=== PATIENT | male | born 1970 | race African-American/Black ===

== ENCOUNTER 2018-11-25 15:17 | Emergency (ER) | payer OTHER ==
[~2018-11-25] VITALS: Ht 162.6 cm; Wt 99.8 kg
--- NOTE | 2018-11-25 16:06 | NUR ---
PT BIB SELF C/O DEPRESSION, +SI "I WANT TO CUT MY SELF AND BLEED TO " PT IS AAOX4, NOT IN RESPIRATORY DISTRESS, HOOKED TO MONITOR, KEPT RESTED AND COMFORTABLE, WILL CONTINUE TO MONITOR.
--- NOTE | 2018-11-25 16:13 | NUR ---
SEEN AND EXAMINED BY .
--- NOTE | 2018-11-25 16:15 | NUR ---
URINE SPECIMEN COLLECTED AND SENT TO LAB.
--- NOTE | 2018-11-25 16:20 | NUR ---
Social service consult requested by Dr. Mack for suicidal ideations. Pt. is a 48 year old male who came to [facility] feeling depression and having suicidal ideations with a plan to cut his wrist. NIK met with pt. bedside. Pt. is alert and oriented x 4. Pt. appears teary eyed and depressed. Pt. states he lives on and off with his sister, however they do not get along and he is currently homeless. Pt. has a sad affect. Pt. states he feels hopeless. Pt. is seeking voluntary psychiatric hospitalization. Pt. has a psychiatric diagnosis of Depression. Pt. was recently hospitalized at [facility] 10 days ago. Pt. use to drink alcohol but not anymore. Pt. denies drug use. Pt. smokes cigarettes occasionally. NIK contacted [facility] intake dept and spoke to Alicia and requested bed availability for the pt. She informed SW they are currently doing discharges and will know in 2 hours. NIK gave her pt's information. Clinical referral packet needs to be faxed to . NIK updated ED BHAVESH Rodgers with aforementioned information.
[2018-11-25 16:40] LABS: BASOPHILS # (AUTO) 0.1 /CMM (0.0-0.2); BASOPHILS % (AUTO) 0.9 % (0.0-2.0); EOSINOPHILS % (AUTO) 3.4 % (0.0-6.0); HEMATOCRIT 39 % (39-51); HEMOGLOBIN 13.4 g/dL (13.5-17.5); LYMPHOCYTES # (AUTO) 1.4 /CMM (0.8-4.8); LYMPHOCYTES % (AUTO) 14.8 % (20.0-44.0); MEAN CORPUSCULAR HGB CONC 34 g/dl (31.0-36.0); MEAN CORPUSCULAR VOLUME 86 fL (80-96); MONOCYTES # (AUTO) 0.5 /CMM (0.1-1.30); MONOCYTES % (AUTO) 5.1 % (2.0-12.0); NEUTROPHILS # (AUTO) 7.4 /CMM (1.8-8.9); NEUTROPHILS % (AUTO) 75.8 % (43.0-81.0); PLATELET COUNT (AUTO) 285 /CMM (150-450); RED BLOOD CELL COUNT(AUTO) 4.55 MIL/uL (4.5-6.0); WHITE BLOOD COUNT (AUTO) 9.8 K/uL (4.3-11.0)
--- NOTE | 2018-11-25 17:02 | NUR ---
FOOD TRAY PROVIDED.
[2018-11-25 17:20] LABS: APPEARANCE,URINE Clear (CLEAR); BILIRUBIN,URINE Negative (NEGATIVE); BLOOD, URINE Trace-intact Ery/uL (NEGATIVE); COLOR,URINE Yellow (YELLOW); KETONES,URINE Negative (NEGATIVE); LEUKOCYTE ESTERASE ,URINE Negative (NEGATIVE); NITRITE, URINE Negative (NEGATIVE); PROTEIN,URINE Negative (NEGATIVE); UGLUCOSE 500 MG/DL mg/dL (NEGATIVE); UROBILINOGEN,URINE 0.2 EU/dL (0.2)
--- NOTE | 2018-11-25 17:33 | NUR ---
SI PROTOCOL INITIATED.
[2018-11-25 17:38] LABS: BACTERIA,URINE Few /HPF (None Seen); SQUAMOUS EPITHELIAL CELL,UR Few /HPF (None Seen); WBC,URINE 0-2 /HPF (0-3)
[2018-11-25 17:50] LABS: ALANINE AMINOTRANSFERASE 47 U/L (12-78); ALBUMIN 3.2 g/dL (3.4-5.0); ALKALINE PHOSPHATASE 107 U/L (46-116); ASPARTATE AMINOTRANSFERASE 13 U/L (15-37); BILIRUBIN,DIRECT 0.1 mg/dL (0.0-0.2); BILIRUBIN,TOTAL 0.3 mg/dL (0.2-1.0); CALCIUM, SERUM 8.5 mg/dL (8.5-10.1); CARBON DIOXIDE 26 mmol/L (21-32); CHLORIDE 98 mmol/L (98-107); CREATININE 1.2 mg/dL (0.6-1.3); SODIUM SERUM 134 mmol/L (136-145); TOTAL PROTEIN, SERUM 6.8 g/dL (6.4-8.2); UREA NITROGEN, BLOOD 11 mg/dL (7-18)
[2018-11-25 17:53] LABS: GLUCOSE 458 mg/dL (74-106); SALICYLATE 0.7 mg/dL (2.8-20.0)
--- NOTE | 2018-11-25 18:12 | NUR ---
IV LINE ESTABLISHED, 1000ML NORMAL SALINE RUNNING ORDERED BY .
[2018-11-25 18:21] LABS: ALCOHOL, BLOOD < 3 mg/dL (0-0)
[2018-11-25 18:26] LABS: ACETAMINOPHEN 0 ug/ml (10-30)
[2018-11-25] MEDS ORDERED: IV NS 0.9% 1,000 ML BAG IV ONE (18:30)
[2018-11-25] MEDS ORDERED: INSULIN REGULAR, HUMAN 100 UNIT/ML 10 ML VIAL ONE (18:30)
[2018-11-25] MEDS ORDERED: INSULIN REGULAR, HUMAN 100 UNIT/ML 10 ML VIAL IV ONE ×3 (18:30→22:30)
--- NOTE | 2018-11-26 07:38 | NUR ---
ASSESSED PT ON BED EASILY AROUSABLE, AAOX4, NOT IN RESPIRATORY DISTRESS, V/S STABLE, KEPT RESTED AND COMFORTABLE, WILL CONTINUE TO MONITOR.
--- NOTE | 2018-11-26 07:40 | NUR ---
BLOOD SUGAR RECHECKED, AWARE.
[2018-11-26] MEDS ORDERED: METFORMIN XR 500 MG TAB.SR.24H PO ONE (07:59)
[2018-11-26] MEDS ORDERED: METFORMIN 500 MG TABLET PO ONE (08:00)
[2018-11-26] MEDS ORDERED: METFORMIN 850 MG TABLET ONE (08:01)
--- NOTE | 2018-11-26 12:18 | NUR ---
CALLED FOR DIABETIC FOOD TRAY
[2018-11-26] MEDS ORDERED: INSULIN REGULAR, HUMAN 100 UNIT/ML 10 ML VIAL SQ ONE (13:00)
--- NOTE | 2018-11-26 13:40 | NUR ---
PT STATED WANTS TO BE DISCHARGE AND REFERRED TO .
[2018-11-26 13:59] VITALS: BP 138/84
--- NOTE | 2018-11-26 14:30 | NUR ---
Patient eloped from facility. ER MD and charge nurse aware.
== END 2018-11-26 14:53 | disposition left against medical advice (07) ==
LOC: ER 15:21
DX: F28 Other psychotic disorder not due to a substance or known physiological condition (principal); E11.65 Type 2 diabetes mellitus with hyperglycemia; F31.9 Bipolar disorder, unspecified; I11.0 Hypertensive heart disease with heart failure; I50.9 Heart failure, unspecified
CPT/HCPCS: 36415; 71045; 80048; 80076; 80305; 80307; 80329; 81001; 82962 ×6; 84484; 85025; 93005; 96361; 96374; 96376; 99284; G0480; J1815; 81000-TC